=== PATIENT | female | born 1960 | race Caucasian/White ===

== ENCOUNTER → 2017-10-25 | Outpatient (CLI) | payer BC ==
--- NOTE | 2017-10-25 13:44 | ECHOF ---
Referral Reason:R01.1 Murmurm R06.2 SOB MEASUREMENTS -------- HEIGHT: 172.7 cm WEIGHT: 63.5 kg BP: RVIDd: 2.4 cm (< 3.3) IVSd: 0.9 cm (0.6 - 1.1) LVIDd: 3.6 cm (3.9 - 5.3) LVPWd: 1.0 cm (0.6 - 1.1) IVSs: 1.2 cm LVIDs: 3.4 cm LVPWs: 1.1 cm LAESV Index (A-L): 19.67 ml/m Ao Diam: 2.9 cm (2.0 - 3.7) AV Cusp: 1.4 cm (1.5 - 2.6) LA Diam: 2.8 cm (2.7 - 3.8) MV EXCURSION: 19.197 mm (> 18.000) MV EF SLOPE: 78 mm/s (70 - 150) EPSS: 1.3 cm MV E Kirk: 0.42 m/s MV DecT: 320 ms MV A Kirk: 0.80 m/s MV E/A Ratio: 0.52 RAP: 5.00 mmHg RVSP: 20.28 mmHg FINDINGS -------- Sinus rhythm. This was a technically good study. LV size, wall thickness and systolic function are normal, with an EF greater than 55%. The right ventricle is normal in size. Normal LA size by volume 22+/-6 ml/m2. The right atrial size is normal. The aortic valve is trileaflet, and appears structurally normal. No aortic stenosis or regurgitation. Mild mitral regurgitation is present. Mild tricuspid regurgitation present. There is no evidence of pulmonary hypertension. The right v entricular systolic pressure, as measured by Doppler, is 20.28mmHg. There is no pulmonic regurgitation present. The aortic root size is normal. There is no pericardial effusion. CONCLUSIONS -------- 1. LV size, wall thickness and systolic function are normal, with an EF greater than 55%. 2. The aortic valve is trileaflet, and appears structurally normal. No aortic stenosis or regurgitati on. 3. Mild mitral regurgitation is present. 4. Mild tricuspid regurgitation present. 5. There is no evidence of pulmonary hypertension. 6. The right ventricular systolic pressure, as measured by Doppler, is 20.28mmHg. 7. There is no pulmonic regurgitation present. 8. The aortic root size is normal. 9. There is no pericardial effusion. ELECTROMEDICAL EQUIPMENT TECHNICIAN: Coleen Ya RDCS
== END | disposition home or self-care (01) ==
LOC: RADECHMAIN 11:09
PROVIDERS: ATTEND Family Medicine
DX: I08.1 Rheumatic disorders of both mitral and tricuspid valves (principal); Z88.2 Allergy status to sulfonamides
CPT/HCPCS: 93306

== ENCOUNTER 2019-07-18 13:34 | Emergency (ER) | payer MEDICARE, BC ==
[2019-07-18] MEDS ORDERED: HYDROmorphone 1 MG/ML 1 ML SYRINGE IVP STA (13:36)
--- NOTE | 2019-07-18 13:39 | ED ---
Lower Extremity Injury HPI - General Source: patient, EMS, RN notes reviewed Mode of arrival: EMS Limitations: physical limitation <Mandeep Guerrero - Last Filed: 07/18/19 15:45> <Scott Garcia - Last Filed: 07/18/19 16:29> - General Stated Complaint: Dislocated rt hip Time Seen by Provider: 07/18/19 13:36 - History of Present Illness Initial Comments: 58-year-old female presents emergency department via EMS chief complaint right hip pain. Patient states she bent forward and felt a pop to her right hip. Patient states that she's had prior dislocation right hip. Patient had surgery related to 16 with 2 revisions. Patient states that she was given fentanyl by EMS did help her pain somewhat states that she still painful. Patient denies any paresthesias. Patient unable to ambulate. (Mandeep Guerrero) - Related Data Home Medications Medication Instructions Recorded Confirmed Gabapentin [Neurontin] 600 mg PO TID 02/01/15 07/06/17 Loratadine [Claritin] 10 mg PO DAILY 02/01/15 07/05/17 Multivitamin/Iron/Folic Acid 1 tab PO DAILY 02/01/15 07/05/17 [Centrum Complete Multivit Tab] PARoxetine [Paxil] 20 mg PO DAILY 02/01/15 07/05/17 Baclofen [Lioresal] 20 mg PO HS 07/05/17 07/05/17 Fluticasone Nasal [place] [Flonase 2 spr EA NOSTRIL DAILY PRN 07/05/17 07/05/17 Nasal [place]] Pantoprazole Sodium [Protonix] 40 mg PO DAILY 07/05/17 07/05/17 Turmeric Root Extract [Turmeric] 500 mg PO DAILY 07/05/17 07/05/17 traMADol HCL [Ultram] 50 - 100 mg PO Q8H PRN 07/05/17 07/05/17 Allergies Allergy/AdvReac Type Severity Reaction Status Date / Time Sulfa (Sulfonamide AdvReac Itching Verified 07/18/19 13:43 Antibiotics) Review of Systems ROS Other: All systems not noted in ROS Statement are negative. <Mandeep Guerrero - Last Filed: 07/18/19 15:45> ROS Other: All systems not noted in ROS Statement are negative. <Scott Garcia - Last Filed: 07/18/19 16:29> ROS Statement: Those systems with pertinent positive or pertinent negative responses have been documented in the HPI. Past Medical History Past Medical History: GI Bleed, Hypertension, Musculoskeletal Disorder Additional Past Medical History / Comment(s): other Hx: multiple sclerosis, diverticulosis, L eye optic neuritis, brain anyeurism (2009), GI bleed and bowel perferation (2005). History of Any Multi-Drug Resistant Organisms: None Reported Past Surgical History: Bowel Resection, Tubal Ligation Additional Past Surgical History / Comment(s): Brain aneurysm surgery with brain stent at [facility] in 2009, ruptured bowel requiring bowel resection in 2003, several colonoscopies. right hip replacement. Past Anesthesia/Blood Transfusion Reactions: No Reported Reaction Additional Past Anesthesia/Blood Transfusion Reaction / Comment(s): Pt has recieved 3 pints of blood after brain aneurysm surgery with stent-related to anticoag she was taking. Past Psychological History: No Psychological Hx Reported Additional Psychological History / Comment(s): Pt resides at home with her . She is independent. She uses no assistive devices. She has no home care agency. Smoking Status: Former smoker Past Alcohol Use History: Occasional Additional Past Alcohol Use History / Comment(s): Pt states she started smoking at age 13yrs and quit in 2003. She states she drinks alcohol socially but not daily. Past Drug Use History: None Reported - Past Family History Father Family Medical History: Coronary Artery Disease (CAD), Myocardial Infarction ([place]) Mother Family Medical History: Cancer, Thyroid Disorder Additional Family Medical History / Comment(s): Mother of colon cancer. She had Hashimotos dx. <Mandeep Guerrero M - Last Filed: 07/18/19 15:45> General Exam Limitations: no limitations General appearance: alert, in no apparent distress Respiratory exam: Present: normal lung sounds bilaterally. Absent: respiratory distress, wheezes, rales, rhonchi, stridor Cardiovascular Exam: Present: regular rate, normal rhythm, normal heart sounds. Absent: systolic murmur, diastolic murmur, rubs, gallop, clicks Extremities exam: Present: other (Right leg is shortened, minimally rotated, pulses are palpable equal bilaterally there is tenderness the right hip) Neurological exam: Present: alert, oriented X3, CN II-XII intact Skin exam: Present: warm, dry, intact, normal color. Absent: rash <Mandeep Guerrero - Last Filed: 07/18/19 15:45> Course <Mandeep Guerrero - Last Filed: 07/18/19 15:45> <Scott Garcia - Last Filed: 07/18/19 16:29> Vital Signs 07/18/19 07/18/19 07/18/19 13:38 14:48 14:55 Temperature 98.0 F Pulse Rate 129 H 130 H 105 H Respiratory 20 20 12 Rate Blood Pressure 185/102 179/110 154/90 O2 Sat by Pulse 97 95 99 Oximetry 07/18/19 07/18/19 07/18/19 15:00 15:03 15:05 Temperature Pulse Rate 93 92 103 H Respiratory 12 14 14 Rate Blood Pressure 122/77 125/74 112/71 O2 Sat by Pulse 99 99 98 Oximetry 07/18/19 07/18/19 07/18/19 15:10 15:30 15:32 Temperature Pulse Rate 109 H 98 93 Respiratory 16 16 16 Rate Blood Pressure 124/73 127/88 131/77 O2 Sat by Pulse 94 L 99 96 Oximetry 07/18/19 16:15 Temperature Pulse Rate 106 H Respiratory 16 Rate Blood Pressure 132/74 O2 Sat by Pulse 99 Oximetry - Reevaluation(s) Reevaluation #1: 07/18/19 15:45 Patient reevaluated is in no pain, updated patient has brace at home. (Mandeep Guerrero) Reevaluation #2: 07/18/19 16:28 PA supervision: I did personally evaluate the patient and discussed the findings with her and her . I was present when the procedural sedation was done as well as the reduction of the right hip subluxation. Patient did tolerate it well. Patient will be discharged she does have an adductor pillow at home. She will follow-up with her orthopedist. I do agree with the assessment and plan (Scott Garcia) Procedures - Procedural Sedation Procedural Sedation Start Time: 14:50 Procedural Sedation Stop Time: 15:25 ASA Class: II Mallampati Airway Score: 3 Preparation: electronic device monitor applied, pulse oximeter, capnometry used, supplemental O2 applied, reversal agents at bedside, suction/airway equipment at bedside, IV secured IV Propofol Dose (mgs): 170 Complications: none (Patient did tolerate seizure well he did however require additional dosing of propofol.) <Scott Garcia - Last Filed: 07/18/19 16:29> - Procedural Sedation Other Medications Used: Dilaudid and Ativan (Scott Garcia) Medical Decision Making <Mandeep Guerrero - Last Filed: 07/18/19 15:45> - Medical Decision Making 58-year-old female presents emergency Department for right hip pain. Patient found her right hip dislocation this was reduced in emergency department Dr. Garcia. Patient has her brace from a prior dislocations in the car and which she will be put on, patient will follow-up with her orthopedic Center scheduled appointment return for any worsening symptoms. (Mandeep Guerrero) Disposition Is patient prescribed a controlled substance at d/c from ED?: No Time of Disposition: 15:47 <Mandeep Guerrero - Last Filed: 07/18/19 15:45> <Scott Garcia - Last Filed: 07/18/19 16:29> Clinical Impression: Hip dislocation, right Disposition: HOME SELF-CARE Condition: Stable Instructions (If sedation given, give patient instructions): Moderate Sedation (ED), Hip Dislocation (ED) Additional Instructions: Please return to the Emergency Department if symptoms worsen or any other concerns. Referrals: Romy Reed DO [Primary Care Provider] - 1-2 days
[2019-07-18 13:43] VITALS: TEMP 98
--- NOTE | 2019-07-18 14:08 | XR ---
EXAMINATION TYPE: XR Hip RT and AP Pelvis DATE OF EXAM: 07/18/2019 COMPARISON: NONE HISTORY: Pain TECHNIQUE: A single AP view of the pelvis is obtained. Two views of the right hip are obtained. FINDINGS: There is a posterior dislocation of the prosthetic femoral head. I see no fracture. The pel dhaval ring is intact. Proximal left femur is intact. Sacroiliac joints appear normal. IMPRESSION: Posterior dislocation of the right hip prosthesis.
[2019-07-18] MEDS ORDERED: PROPOFOL 10 MG/ML 20 ML VIAL IV STA (14:13)
[2019-07-18] MEDS ORDERED: HYDROmorphone 0.5 MG/0.5 ML SYRINGE IVP STA (14:38)
[2019-07-18 15:15] VITALS: RESP 16
--- NOTE | 2019-07-18 15:15 | XR ---
EXAMINATION TYPE: XR Hip Limited RT DATE OF EXAM: 07/18/2019 COMPARISON: Today HISTORY: Post reduction TECHNIQUE: Single view FINDINGS: There is anatomic reduction of the prosthetic femoral head. No fracture seen. IMPRESSION: Anatomic reduction.
[2019-07-18] MEDS ORDERED: LORazepam 2 MG/ML INJ IV STA (15:20)
[2019-07-18 16:31] VITALS: BP 133/77; PULSE 107
== END 2019-07-18 16:30 | disposition home or self-care (01) ==
LOC: EC 13:34
DX: S73.014A Posterior dislocation of right hip, initial encounter (principal); G35 Multiple sclerosis; I10 Essential (primary) hypertension; Z88.2 Allergy status to sulfonamides; Z79.899 Other long term (current) drug therapy; Z96.641 Presence of right artificial hip joint; Z87.891 Personal history of nicotine dependence; Z87.19 Personal history of other diseases of the digestive system; W18.30XA Fall on same level, unspecified, initial encounter; Y93.89 Activity, other specified
CPT/HCPCS: 99152; 99153; 27250; 99284; 96374; 96375; 96376; 73501; 73502; J2060; J1170 ×2; J2704

== ENCOUNTER 2019-07-26 01:28 | Emergency (ER) | payer MEDICARE, BC ==
[2019-07-26 01:40] VITALS: TEMP 98.7
[2019-07-26] MEDS: HYDROmorphone 1 MG/ML 1 ML SYRINGE IVP STA ×2 (02:02→03:26)
--- NOTE | 2019-07-26 02:24 | XR ---
EXAMINATION TYPE: XR Hip RT and AP Pelvis DATE OF EXAM: 07/26/2019 COMPARISON: 07/18/2019 HISTORY: Pain in the right hip TECHNIQUE: A single AP view of the pelvis is obtained. Two views of the right hip are obtained. FINDINGS: The pelvic ring is intact. There is right hip prosthesis. There is a posterior dislocation of the prosthetic femoral head. I see no fracture. Sacroiliac joints are intact. Proximal left femur is intact. IMPRESSION: There is posterior dislocation of the prosthetic femoral head that is a change compared to last exam.
[2019-07-26] MEDS: ETOMIDATE 2 MG/ML 10 ML VIAL IVP STA ×3 (03:15→04:05)
--- NOTE | 2019-07-26 03:52 | ED ---
Lower Extremity Injury HPI - General Chief Complaint: Extremity Injury, Lower Stated Complaint: Rt Hip Dislocation Time Seen by Provider: 07/26/19 01:34 Source: patient, EMS Mode of arrival: EMS Limitations: no limitations - History of Present Illness Initial Comments: Patient is 4-year-old woman with history of right total hip are arthroplasty, who presents with complaint that she believes she has dislocated her right hip again. Patient relates that she had a hip surgery in 2016, subsequent revisions. She states that she had been sitting with her and then attempting to get up she felt a pop in her hip and then was not able to stand. Her tried to help her get up and then after while and they're not able to take did call EMS. Patient states she did have a dislocation approximately 10 days ago and was seen here and they were able to reduce after a number attempts. Patient complains of pain and inability to support herself on her right leg. Complaint: hip injury Onset/Timin -: hour(s) Injury: Hip: Right Place: home Severity: severe Improves With: nothing Worsens With: movement Associated Symptoms: snap/pop sensation - Related Data Home Medications Medication Instructions Recorded Confirmed Gabapentin [Neurontin] 600 mg PO TID 02/01/15 07/26/19 Loratadine [Claritin] 10 mg PO DAILY 02/01/15 07/26/19 Multivitamin/Iron/Folic Acid 1 tab PO DAILY 02/01/15 07/26/19 [Centrum Complete Multivit Tab] PARoxetine [Paxil] 20 mg PO DAILY 02/01/15 07/26/19 Baclofen [Lioresal] 20 mg PO HS 07/05/17 07/26/19 Fluticasone Nasal [place] [Flonase 2 spr EA NOSTRIL DAILY PRN 07/05/17 07/26/19 Nasal [place]] Pantoprazole Sodium [Protonix] 40 mg PO DAILY 07/05/17 07/26/19 Turmeric Root Extract [Turmeric] 500 mg PO DAILY 07/05/17 07/26/19 traMADol HCL [Ultram] 50 - 100 mg PO Q8H PRN 07/05/17 07/26/19 Allergies Allergy/AdvReac Type Severity Reaction Status Date / Time Sulfa (Sulfonamide AdvReac Itching Verified 07/26/19 01:40 Antibiotics) Review of Systems ROS Statement: Those systems with pertinent positive or pertinent negative responses have been documented in the HPI. ROS Other: All systems not noted in ROS Statement are negative. Constitutional: Denies: fever, weakness Respiratory: Denies: cough, dyspnea Cardiovascular: Denies: chest pain, palpitations, syncope Gastrointestinal: Denies: abdominal pain, vomiting, diarrhea Genitourinary: Denies: dysuria Musculoskeletal: Reports: joint swelling, arthralgia. Denies: back pain Skin: Denies: rash Neurological: Denies: headache, weakness, numbness, paresthesias Past Medical History Past Medical History: GI Bleed, Hypertension, Musculoskeletal Disorder Additional Past Medical History / Comment(s): other Hx: multiple sclerosis, diverticulosis, L eye optic neuritis, brain anyeurism (2009), GI bleed and bowel perferation (2005). History of Any Multi-Drug Resistant Organisms: None Reported Past Surgical History: Bowel Resection, Tubal Ligation Additional Past Surgical History / Comment(s): Brain aneurysm surgery with brain stent at [facility] in 2009, ruptured bowel requiring bowel resection in 2003, several colonoscopies. right hip replacement. Past Anesthesia/Blood Transfusion Reactions: No Reported Reaction Additional Past Anesthesia/Blood Transfusion Reaction / Comment(s): Pt has recieved 3 pints of blood after brain aneurysm surgery with stent-related to anticoag she was taking. Past Psychological History: No Psychological Hx Reported Smoking Status: Former smoker Past Alcohol Use History: Occasional Past Drug Use History: None Reported - Past Family History Father Family Medical History: Coronary Artery Disease (CAD), Myocardial Infarction ([place]) Mother Family Medical History: Cancer, Thyroid Disorder Additional Family Medical History / Comment(s): Mother of colon cancer. She had Hashimotos dx. General Exam Limitations: no limitations General appearance: alert, in no apparent distress Head exam: Present: atraumatic, normocephalic Eye exam: Present: normal appearance. Absent: scleral icterus, conjunctival injection ENT exam: Present: normal oropharynx Neck exam: Present: normal inspection, full ROM Respiratory exam: Present: normal lung sounds bilaterally. Absent: respiratory distress, wheezes, rales, rhonchi, stridor Cardiovascular Exam: Present: regular rate, normal rhythm, normal heart sounds. Absent: systolic murmur, diastolic murmur, rubs, gallop GI/Abdominal exam: Present: soft. Absent: distended, tenderness, guarding, rebound, rigid Extremities exam: Present: normal inspection, normal capillary refill. Absent: pedal edema, calf tenderness Back exam: Present: normal inspection Neurological exam: Present: alert. Absent: motor sensory deficit Skin exam: Present: warm, dry, intact, normal color. Absent: rash Course Vital Signs 07/26/19 07/26/19 07/26/19 01:35 03:09 03:13 Temperature 98.7 F Pulse Rate 115 H 118 H 105 H Respiratory 18 18 18 Rate Blood Pressure 182/101 149/94 155/98 O2 Sat by Pulse 98 93 L 90 L Oximetry 07/26/19 07/26/19 07/26/19 03:18 03:23 03:26 Temperature Pulse Rate 111 H 104 H 111 H Respiratory 16 18 18 Rate Blood Pressure 119/94 122/84 111/82 O2 Sat by Pulse 90 L 93 L 94 L Oximetry 07/26/19 07/26/19 07/26/19 03:30 03:45 04:00 Temperature Pulse Rate 120 H 112 H 116 H Respiratory 18 18 18 Rate Blood Pressure 133/87 131/90 143/99 O2 Sat by Pulse 95 96 95 Oximetry 07/26/19 07/26/19 07/26/19 04:03 04:06 04:08 Temperature Pulse Rate 109 H 105 H 101 H Respiratory 18 8 L 16 Rate Blood Pressure 121/99 121/76 90/67 O2 Sat by Pulse 96 89 L 87 L Oximetry 07/26/19 07/26/19 07/26/19 04:15 04:30 04:45 Temperature Pulse Rate 96 103 H 86 Respiratory 16 18 17 Rate Blood Pressure 100/68 143/77 128/72 O2 Sat by Pulse 96 96 93 L Oximetry Procedures - Dyer Protocol (Time Out) Procedure Performed:: reduction right hip Performing Provider: Edi Maddox Nurse: Em Callaway Respiratory Therapist: Jaime Moore Patient Identification (2 identifiers required): Chart, Verbal, Arm Band, Name, Birthdate Patient/Legal Interface Designer has Confirmed: Identity, Site, Procedure, Consent Site: right hip Site Marked: Yes Site Verified With Patient/Guardian: Yes Final Confirmation: Procedure, Site, Radiographs - Orthopedic Joint Reduction Joint #1 Consent Obtained: written consent Side: right Joint Reduction Location: hip Technique Used: traction/counter-traction Post-Reduction Neuro Exam: intact Post-Reduction Vascular Exam: intact Post Reduction X-Ray Results: not reduced Patient Tolerated Procedure: no complications - Procedural Sedation Procedural Sedation Start Time: 03:12 Procedural Sedation Stop Time: 03:27 Indications: fracture/dislocation reduction ASA Class: II Mallampati Airway Score: 3 Preparation: equipment monitor phototypesetting applied, pulse oximeter, capnometry used, supplemental O2 applied, suction/airway equipment at bedside, IV secured IV Etomidate Dose (mgs): 20 Complications: none Patient Tolerated Procedure: no complications Medical Decision Making - Medical Decision Making Patient is a 58-year-old woman with history of right total hip arthroplasty. We did find dislocation on the x-ray and reduction was attempted by myself and physician executive chef assistant. We were able to successfully reduce the right hip, but it did come back out. was consulted, did come into the emergency department and discussed risks and benefits with the patient and then perform subsequent closed reduction. I did provide procedural sedation for the procedure, again administering etomidate by IV to the patient, identical to the first procedural sedation note. We then placed patient in knee immobilizer, postreduction x-ray obtained. Disposition Clinical Impression: Hip dislocation, right Disposition: HOME SELF-CARE Condition: Good Instructions (If sedation given, give patient instructions): Moderate Sedation (ED), Hip Dislocation (ED) Is patient prescribed a controlled substance at d/c from ED?: No Referrals: Romy Reed DO [Primary Care Provider] - 1-2 days Scott Montana MD [REFERRING] - 1-2 days
[2019-07-26] MEDS ORDERED: HYDROmorphone 0.5 MG/0.5 ML SYRINGE IVP STA (03:59)
--- NOTE | 2019-07-26 04:20 | XR ---
EXAMINATION TYPE: XR Hip Limited RT DATE OF EXAM: 07/26/2019 COMPARISON: Today HISTORY: Post reduction TECHNIQUE: Single view FINDINGS: There is anatomic reduction of the right hip prosthesis. The ring around the prosthetic fem oral head is in a different position in on the exam of 07/18/2019. IMPRESSION: Anatomic reduction. There is different position of the ring at the femoral neck.
[2019-07-26] MEDS ORDERED: NALOXONE 0.4 MG/ML 1 ML VIAL IV STA (06:43)
[2019-07-26 07:33] VITALS: BP 140/86; PULSE 86; RESP 19
--- NOTE | 2019-07-26 08:17 | CONS ---
CONSULTATION DATE OF CONSULTATION: 07/26/2019. REASON FOR CONSULTATION: Right hip dislocation. HISTORY OF PRESENT ILLNESS: The patient is a very pleasant, previously healthy 58-year-old female who has had longstanding problems with her right hip. Several years ago, the patient had a right total hip replacement done at [facility] by Dr. Howard. The patient reports that in the early postoperative period, she had a hip dislocation where she "tore all of the soft tissue." It was reduced and she had revision surgery. Since that time, she has had intermittent problems with hip dislocations and reductions. She underwent revision surgery with what sounds like allograft bone and constrained liner this past February, again by Dr. Howard at [facility]. She dislocated her hip again about a week ago and presented to our ER where a successful closed reduction was performed in the emergency department. This evening, the patient once again dislocated her hip. She says she had an upcoming appointment with Dr. Howard this coming Saturday. She has an array of braces and immobilizers at home which she apparently was not wearing tonight. The ER tried unsuccessfully at reducing the hip. I was called to evaluate the patient. At the time of my evaluation, the patient is complaining of isolated pain in her right leg and numbness in her leg. She also has multiple sclerosis, which contributes to the numbness. PAST MEDICAL HISTORY: Please see ER documentation. PAST SURGICAL HISTORY: Postsurgical history same. Please see ER documentation. MEDICATIONS: Medications same. Please see ER documentation. ALLERGIES: Allergies same. Please see ER documentation. SOCIAL HISTORY: Social history same. REVIEW OF SYSTEMS: Obtained, negative. PHYSICAL EXAMINATION: On inspection, the patient is resting comfortably in her bed, in moderate distress secondary to her right hip. HEAD: Normocephalic and atraumatic. She demonstrates nonlabored breathing. Symmetric chest expansion. ABDOMEN: Soft, nonobese. The upper and left lower extremity are normal without deformity. A focused examination of the patient's right leg was conducted. On visual inspection of the leg, it is shortened and rotated. There is a healed incision over the proximal aspect of the femur. There was no erythema or warmth. The thigh and calf were soft. There is decreased sensation globally throughout the foot consistent with her chronic exam. She is able to actively dorsiflex and plantar flex her foot. There is a palpable pedal pulse. IMAGING: X-rays of the right hip show a posterior superior hip dislocation. There did not appear to be any periprosthetic fractures. There appears to be a constrained liner. The acetabular cup appears to be retroverted. ASSESSMENT: The patient is a 58-year-old female with a right periprosthetic hip dislocation. PLAN: The patient underwent successful closed reduction by myself in the emergency department this evening. She was placed in the knee immobilizer. She was instructed to remain toe-touch weightbearing on the right with crutches. The patient will follow up with her established orthopedic surgeon, Dr. Howard at [facility]. She was informed that our office will not be managing this problem meterman and that she will likely need another revision surgery by Dr. Howard. All followup regarding the right hip, including questions, hip precautions, etc. is under the discretion of her treating orthopedic surgeon at [facility], Dr. Howard. MMODL / IJN: [id number] /
--- NOTE | 2019-07-26 08:20 | PCN ---
PROCEDURE NOTE PROCEDURE: Verbal consent for a closed reduction of the right hip was obtained. All the patient's questions were answered. Having previously undergone this, she was well-versed in the potential risks and complications including inability to reduce the hip fracture and need for further treatment. Sedation was provided by the ER physician, Dr. Perea. DESCRIPTION OF PROCEDURE: Once the patient was adequately sedated, a gentle closed reduction was performed. An teacher's assistant held the pelvis stabilized while I flexed the hip to 90 degrees, pulled longitudinal traction and internally and externally rotated the hip. There was a palpable clunk as the hip reduced. Of note, the hip was easily dislocated after reducing it. I was able to again reduced the hip. Leg lengths appeared symmetric. A knee immobilizer was applied. Postreduction x-rays showed the femoral head reduced into the acetabulum. MMODL / IJN: [id number] /
== END 2019-07-26 07:58 | disposition home or self-care (01) ==
LOC: EC 01:28
DX: T84.020A Dislocation of internal right hip prosthesis, initial encounter (principal); H46.9 Unspecified optic neuritis; Z87.891 Personal history of nicotine dependence; Z88.2 Allergy status to sulfonamides; Z79.899 Other long term (current) drug therapy; Z87.19 Personal history of other diseases of the digestive system; Y79.2 Prosthetic and other implants, materials and accessory orthopedic devices associated with adverse incidents; W07.XXXA Fall from chair, initial encounter; X50.9XXA Other and unspecified overexertion or strenuous movements or postures, initial encounter; Y93.89 Activity, other specified; Y92.009 Unspecified place in unspecified non-institutional (private) residence as the place of occurrence of the external cause
CPT/HCPCS: 73501; 73502; 99284; 27265; 99156; 96374; 96375; 96376 ×2; J2310; J1170 ×2

== ENCOUNTER → 2024-10-09 | Outpatient (CLI) | payer MEDICARE, OTHER ==
--- NOTE | 2024-10-09 09:26 | MM ---
Reason for Exam: Screening (asymptomatic). Patient History: Menarche at age 10. Postmenopausal. Risk Values: Kayleen 5 year model risk: 1.2%. NCI Lifetime model risk: 4.6%. Prior Study Comparison: No prior studies available for comparison. Tissue Density: The breasts are almost entirely fatty. Findings: Analyzed By CAD. Right breast: Focal asymmetry upper outer aspect. No suspicious calcifications. Left breast: Retroareolar focal asymmetry approximately 6-8 mm from the nipple.No suspicious calcifications. Overall Assessment: Incomplete: need additional imaging evaluation, BI-RAD 0 Management: Diagnostic Mammogram of both breasts. [facility] will attempt to contact patient to return for supplemental views and ultrasound if indicated. Patient should continue monthly self-breast exams. A clinical breast exam by your physician is recommended on an annual basis. This exam should not preclude additional follow-up of suspicious palpable abnormalities. Note on Kayleen scores and lifetime risk: 1. A Kayleen score greater than 3% is considered moderate risk. If this is the case, consider specialist referral to assess eligibility for a risk reducing agent. 2. If overall lifetime risk for the development of breast cancer is 20% or higher, the patient may qualify for future screening with alternating mammogram and breast MRI. [facility], , 10/09/2024 9:23 AM. Electronically signed and approved by: Scott Moss DO
== END | disposition home or self-care (01) ==
LOC: RADMAMWWP 08:52
PROVIDERS: ATTEND Family Medicine
DX: Z12.31 Encounter for screening mammogram for malignant neoplasm of breast (principal); Z78.0 Asymptomatic menopausal state
CPT/HCPCS: 77067

== ENCOUNTER → 2024-10-14 | Outpatient (CLI) | payer MEDICARE, OTHER ==
--- NOTE | 2024-10-14 11:45 | MM ---
Reason for Exam: Additional evaluation requested from abnormal screening. Last screening mammogram was performed less than 1 month ago. Patient History: Menarche at age 10. Postmenopausal. Risk Values: Kayleen 5 year model risk: 1.2%. NCI Lifetime model risk: 4.6%. Prior Study Comparison: 10/09/2024 Bilateral MG screening mammo w CAD, [facility]. Tissue Density: There are scattered areas of fibroglandular density. Findings: Analyzed By CAD. There is a 4 mm oval circumscribed lesion anterior upper outer aspect right breast roughly 2 to 3 cm distance from nipple that persists on additional views. No persistent suspicious mass in the left breast on additional views. Overall Assessment: Incomplete: need additional imaging evaluation, BI-RAD 0 Management: Diagnostic Breast Ultrasound of the right breast. Targeted ultrasound right breast. Results were given to the patient verbally at the time of exam. Patient should continue monthly self-breast exams. A clinical breast exam by your physician is recommended on an annual basis. This exam should not preclude additional follow-up of suspicious palpable abnormalities. Note on Kayleen scores and lifetime risk: 1. A Kayleen score greater than 3% is considered moderate risk. If this is the case, consider specialist referral to assess eligibility for a risk reducing agent. 2. If overall lifetime risk for the development of breast cancer is 20% or higher, the patient may qualify for future screening with alternating mammogram and breast MRI. [facility], , 10/14/2024 11:42 AM. Electronically signed and approved by: Mikel Montaño M.D.
--- NOTE | 2024-10-14 12:32 | USB ---
Reason for Exam: Additional evaluation requested from abnormal screening. Patient History: Menarche at age 10. Postmenopausal. Risk Values: Kayleen 5 year model risk: 1.2%. NCI Lifetime model risk: 4.6%. Prior Study Comparison: 10/09/2024 Bilateral MG screening mammo w CAD, [facility]. Findings: The axilla of the right breast and the retroareolar of the right breast were scanned. Targeted ultrasound shows no recent solid or cystic mass or abnormal fluid collection. Overall Assessment: Probably benign, BI-RAD 3 Management: Diagnostic Mammogram of the right breast in 6 months. Precautionary short-term diagnostic follow-up mammogram. If patient is able to find older outside mammograms, comparison could be made and addendum may be issued. A clinical breast exam by your physician is recommended on an annual basis and results should be correlated with mammographic findings. This exam should not preclude additional follow-up of suspicious palpable abnormalities. Results were given to the patient verbally at the time of exam. [facility], , 10/14/2024 12:29 PM. Electronically signed and approved by: Mikel Montaño M.D.
[2024-10-14 17:19] LABS: Basophils # (A) 0.05 X 10*3/uL (0.00-0.10); Basophils % (A) 0.9 %; Eosinophils # (A) 0.16 X 10*3/uL (0.04-0.35); Eosinophils % (A) 2.9 %; HCT 38.1 % (37.2-50.0); HGB 12.5 g/dL (12.0-17.0); Lymphocytes # (A) 1.28 X 10*3/uL (0.90-5.00); Lymphocytes % (A) 23.5 %; MCH 28.6 pg (27.0-32.0); MCHC 32.8 g/dL (32.0-37.0); MCV 87.2 FL (80.0-97.0); Mean Platelet Volume 10.1 FL (9.5-12.2); Monocytes # (A) 0.44 X 10*3/uL (0.20-1.00); Monocytes % (A) 8.1 %; NRBC Per 100 WBC 0 X 10*3/uL (0.00-0.01); Neutrophils % (A) 64.4 %; Platelet Count 429 X 10*3/uL (140-440); RBC 4.37 X 10*6/uL (4.10-5.60); RDW 14.6 % (11.5-14.5); WBC 5.44 X 10*3/uL (4.50-10.00)
[2024-10-14 17:20] LABS: Ferritin 35.2 ng/mL (10.0-322.0)
== END | disposition home or self-care (01) ==
LOC: RADMAMWWP 10:13
PROVIDERS: ATTEND Family Medicine
DX: R92.8 Other abnormal and inconclusive findings on diagnostic imaging of breast (principal); Z78.0 Asymptomatic menopausal state; R92.323 Mammographic fibroglandular density, bilateral breasts; E61.1 Iron deficiency; D51.9 Vitamin B12 deficiency anemia, unspecified
CPT/HCPCS: 82607; 82728; 83540; 85025; 77066; 76642; G0279; 77062